=== PATIENT | female | born 1940 | race Caucasian/White ===

== ENCOUNTER 2016-08-17 13:22 | Emergency (ER) | payer MEDICARE ==
[~2016-08-17] VITALS: Ht 165.1 cm; Wt 82.6 kg
[~2016-08-17 13:22] MED LIST changes: -PRAV20TA4 PO
--- OUTSIDE RECORDS SUMMARY | 2016-08-17 13:27 | XMS REPORT ---
Author Author Leonardo Briseno Organization [employer] Address Unknown Phone Unavailable Care Team Providers Care Academic Guidance Specialist Name Role Phone Leonardo Briseno CP Unavailable Allergies No Known Allergies Problems Problem Type Condition Code Onset Dates Condition Status Problem Depressive disorder, not elsewhere classified 311 Active Problem Mixed hyperlipidemia 272.2 Active Problem Chronic kidney disease, Stage II (mild) 585.2 Active Problem Essential (primary) hypertension I10 Active Problem Hyperlipidemia, unspecified E78.5 Active Problem Unspecified diastolic (congestive) heart failure I50.30 Active Problem Congestive heart failure, unspecified 428.0 Active Problem Hypertension, benign 401.1 Active Problem Chronic obstructive pulmonary disease, unspecified J44.9 Active Problem COPD 496 Active Problem 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
--- OUTSIDE RECORDS SUMMARY | 2016-08-17 13:27 | XMS REPORT ---
Author Leonardo Simental Organization [employer] Address Unknown Phone Unavailable Care Team Providers Care Employment Director Name Role Phone Leonardo Briseno Unavailable Allergies No Known Allergies Problems Problem [...] Problem Asthma, unspecified, unspecified status 493.90 Active Assessment Essential (primary) hypertension I10 Active Problem Mixed hyperlipidemia 272.2 Active Problem Unspecified renal failure 586 Active Problem Hypertension, benign 401.1 Active Medications Medication Code System Code Instructions Start Date End Date Status Dosage Ventolin HFA [facility] [id number] 108 Inhalation every 4 hrs INHALE 2 PUFFS EVERY 4 HOURS NEEDED Ativan [facility] [address]-40 0.5 MG Orally every 8 hours May 28, 2015 one-half tablet as needed for anxiety Furosemide [facility] [address]-58 20 MG TAKE ONE TABLET BY MOUTH EVERY DAY Tessalon Perles [facility] [address]-42 100 MG Orally every 8 hours Jan 28, 2016 Feb 25, 2016 1 to 2 capsules as needed for cough/congestion Carvedilol [facility] [address]-31 6.25 MG Orally Twice a day 1 tablet with food Loratadine [facility] [address]-89 10 MG Orally PRN 1 tablet Amlodipine Besylate [facility] [address]-16 5 MG Orally Once a day 1 tablet Vitamin D [facility] [address]-88 1000 UNIT Orally Once a day 1 tablet Aspir-[address] [facility] [address]-17 81 MG Orally Once a day 1 tablet Ipratropium-Albuterol [facility] [address]-75 0.5-2.5 (3) MG/3ML Inhalation Four times a day [address] [facility] [address]-20 300 MG Orally Once a day 1/[address] [facility] [address]-33 0.25 MG/2ML Inhalation Twice a day [address] [facility] [address]-98 500 MG Orally prn 1 capsule as needed pravastatin [facility] [address]-38 20 mg oral at bedtime September 12, 2015 once daily Flonase [facility] [address]-60 50 MCG/ACT Nasally Once a day August 27, 2015 1 spray in each nostril Fluoxetine HCl [facility] [address]-31 10MG Orally Once a day August 22, 2013 take one capsule by mouth every day in the morning Procedures Procedure Coding System Code Date IH CMP CPT-4 91248 Feb 12, 2016 COMPLETE CBC W/AUTO DIFF WBC CPT-4 02482 Feb 12, 2016 Results No Known Results Summary Purpose [employer]Works Submission
--- OUTSIDE RECORDS SUMMARY | 2016-08-17 13:27 | XMS REPORT ---
Author Author Leonardo Briseno Organization [employer] Address Unknown Phone Unavailable Care Team Providers Care Miniature Set Builder Name Role Phone Leonardo Briseno CP Unavailable [...] Active Problem Hypertension, benign 401.1 Active Medications No Known Medications Results No Known Results Summary Purpose [employer] Submission
--- OUTSIDE RECORDS SUMMARY | 2016-08-17 13:27 | XMS REPORT | Continuity of Care Document ---
Author Author [facility] Organization [facility] Address Unknown Phone Unavailable Allergies Medications Problems Date Dx Coded Attending Type Code Diagnosis Diagnosed By 12/29/2011 Isrrael Hobbs MD Final [address] [employer] OBSTR NEC Procedures Results Encounters ACCT No. Visit Date/Time Discharge Status Pt. Type Provider Facility Loc./Unit Complaint [id number] 12/29/2011 12:20:00 2011 23:59:59 CLS Outpatient Isrrael Hobbs MD [facility]
--- OUTSIDE RECORDS SUMMARY | 2016-08-17 13:27 | XMS REPORT ---
Author Author Leonardo Briseno Organization [employer] Address Unknown Phone Unavailable Care Team Providers Care Kitchen Porter Name Role Phone Leonardo Briseno CP Unavailable [...]
--- OUTSIDE RECORDS SUMMARY | 2016-08-17 13:27 | XMS REPORT ---
Author Leonardo Simental Organization [employer] Address Unknown Phone Unavailable Care Team Providers Care Manual Plate Filler Name Role Phone Leonardo Briseno CP Unavailable Allergies, Adverse Reactions, Alerts Substance Reaction Event Type Serevent Diskus anaphylaxis Drug Allergy Lisinopril electrolyte imbalance Drug Allergy Hydrochlorothiazide electrolyte imbalance Drug Allergy Flovent HFA chest tightening Drug Allergy Augmentin nausea and vomiting Drug Allergy Problems Problem Type Condition Code Onset Dates [...] unspecified J44.9 Active Problem COPD 496 Active Assessment Acute bronchitis due to other specified organisms J20.8 Active Problem 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 Problem Asthma, unspecified, unspecified status 493.90 Active Assessment Chronic obstructive pulmonary disease, unspecified J44.9 Active Problem Mixed hyperlipidemia 272.2 Active Problem Unspecified renal failure 586 Active Problem Hypertension, benign 401.1 Active Medications Medication Code System Code Instructions Start Date End Date Status Dosage Furosemide [facility] [address]-52 20 MG TAKE ONE TABLET BY MOUTH EVERY DAY Vitamin D [facility] [address]-14 1000 UNIT Orally Once a day 1 tablet Fluoxetine HCl [facility] [address]-61 10MG Orally Once a day August 22, 2013 take one capsule by mouth every day in the morning Allopurinol [facility] [address]-91 300 MG Orally Once a day 1/2 tablet Tessalon Perles [facility] [address]-60 100 MG Orally every 8 hours Jan 28, 2016 Feb 25, 2016 1 to 2 capsules as needed for cough/congestion Ativan [facility] [address]-42 0.5 MG Orally every 8 hours May 28, 2015 one-half tablet as needed for anxiety Loratadine [facility] [address]-80 10 MG Orally PRN 1 tablet PredniSONE [facility] [address]-63 10 MG Orally 4 tabs daily X3 days then 2 tabs daily X3 days then 1 tab daily X3 days then stop. Jan 28, 2016 Feb 06, 2016 1 tablet with food or milk Carvedilol [facility] [address]-27 6.25 MG Orally Twice a day 1 tablet with food Azithromycin [facility] [address]-91 250 MG Orally as directed. Jan 28, 2016 Feb 02, 2016 2 tablets on the first day, then 1 tablet daily for 4 days Flonase [facility] [address]-48 50 MCG/ACT Nasally Once a day August 27, 2015 1 spray in each nostril pravastatin [facility] [address]-20 20 mg oral at bedtime September 12, 2015 once daily Aspir-81 [facility] [address]-57 81 MG Orally Once a day 1 tablet Acetaminophen [facility] [address]-20 500 MG Orally prn 1 capsule as needed Ventolin HFA [facility] 65573055867 108 Inhalation every 4 hrs INHALE 2 PUFFS EVERY 4 HOURS NEEDED Amlodipine Besylate [facility] [address]-25 5 MG Orally Once a day 1 tablet Budesonide [facility] [address]-42 0.25 MG/2ML Inhalation Twice a day 2 ml Ipratropium-Albuterol [facility] [address]-35 0.5-2.5 (3) MG/3ML Inhalation Four times a day 3 ml Procedures Procedure Coding System Code Date OFFICE VISIT, EST-LOW COMPLEXITY (15 MIN.) CPT-4 70036 Jan 28, 2016 [facility] visit Established Patient CPT-4 G0467 Jan 28, 2016 Vital Signs Date/Time: Jan 28, 2016 Temperature 97.9 F Height 66 in Weight 175.8 lbs Blood Pressure Diastolic 84 mm Hg Blood Pressure Systolic 140 mm Hg Cardiac Monitoring Heart Rate 94 /min BMI 28.37 Index Oximetry 94 % Results No Known Results Summary Purpose eClinicalWorks Submission
--- OUTSIDE RECORDS SUMMARY | 2016-08-17 13:28 | XMS REPORT ---
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 Problem Asthma, unspecified, unspecified status 493.90 Active Assessment Chronic obstructive pulmonary disease, unspecified J44.9 Active Problem Mixed hyperlipidemia 272.2 Active Problem Unspecified renal failure 586 Active Problem Hypertension, benign 401.1 Active Medications Medication Code System Code Instructions Start Date End Date Status Dosage Fluoxetine HCl [facility] [address]-18 10MG Orally Once a day August 22, 2013 take one capsule by mouth every day in the morning Ventolin HFA [facility] [id number] 108 Inhalation every 4 hrs INHALE 2 PUFFS EVERY 4 HOURS NEEDED pravastatin [facility] [address]-30 20 mg oral at bedtime September 12, 2015 once daily Acetaminophen [facility] [address]-91 500 MG Orally prn 1 capsule as needed Loratadine [facility] [address]-11 10 MG Orally PRN 1 tablet Ativan [facility] [address]-57 0.5 MG Orally every 8 hours May 28, 2015 one-half tablet as needed for anxiety Carvedilol [facility] [address]-67 6.25 MG Orally Twice a day 1 tablet with food PredniSONE [facility] [address]-87 10 MG Orally 4 tabs daily X3 days then 2 tabs daily X3 days then 1 tab daily X3 days then stop. Jan 28, 2016 Feb 06, 2016 1 tablet with food or milk Vitamin D [facility] [address]-47 1000 UNIT Orally Once a day 1 tablet Aspir-81 [facility] [address]-82 81 MG Orally Once a day 1 tablet Tessalon Perles [facility] [address]-64 100 MG Orally every 8 hours Jan 28, 2016 Feb 25, 2016 1 to 2 capsules as needed for cough/congestion Budesonide [facility] [address]-38 0.25 MG/2ML Inhalation Twice a day 2 ml Amlodipine Besylate [facility] [address]-53 5 MG Orally Once a day 1 tablet Furosemide [facility] [address]-13 20 MG TAKE ONE TABLET BY MOUTH EVERY DAY Allopurinol [facility] [address]-60 300 MG Orally Once a day 1/2 tablet Ipratropium-Albuterol [facility] [address]-98 0.5-2.5 (3) MG/3ML Inhalation Four times a day 3 ml Flonase [facility] [address]-38 50 MCG/ACT Nasally Once a day August 27, 2015 1 spray in each nostril Procedures Procedure Coding System Code Date OFFICE VISIT, EST-LOW COMPLEXITY (15 MIN.) CPT-4 43993 Feb 03, 2016 [facility] visit Established Patient CPT-4 G0467 Feb 03, 2016 Vital Signs Date/Time: Feb 03, 2016 Temperature 98.4 F Height 66 in Weight 175.12 lbs Blood Pressure Diastolic 88 mm Hg Blood Pressure Systolic 148 mm Hg Cardiac Monitoring Heart Rate 89 /min BMI 28.26 Index Oximetry 91 % Respiratory Rate 24 /min Results No Known Results Summary Purpose eClinicalWorks Submission
--- OUTSIDE RECORDS SUMMARY | 2016-08-17 13:28 | XMS REPORT ---
Author Leonardo Simental Organization [employer] Address Unknown Phone Unavailable Care Team Providers Care County Supervisor Name Role Phone Leonardo Briseno CP Unavailable Allergies, Adverse Reactions, Alerts Substance Reaction Event Type Serevent Diskus anaphylaxis Drug Allergy Lisinopril electrolyte imbalance Drug Allergy Hydrochlorothiazide electrolyte imbalance Drug Allergy Flovent HFA chest tightening Drug Allergy Augmentin nausea and vomiting Drug Allergy Problems Problem Type Condition Code Onset Dates Condition Status Problem Chronic kidney disease, Stage II (mild) 585.2 Active Problem Hypertension, benign 401.1 Active Problem Mixed hyperlipidemia 272.2 Active Problem Unspecified diastolic (congestive) heart failure I50.30 Active Problem Essential (primary) hypertension I10 Active Problem Elevated white blood cell count, unspecified D72.829 Active Problem COPD 496 Active Problem Congestive heart failure, unspecified 428.0 Active Problem Hyperlipidemia, unspecified E78.5 Active Problem Chronic obstructive pulmonary disease, unspecified J44.9 Active Assessment Chronic obstructive pulmonary disease, unspecified J44.9 Active Assessment Acute bronchitis due to other specified organisms J20.8 Active Assessment Elevated white blood cell count, unspecified D72.829 Active Problem Asthma, unspecified, unspecified status 493.90 Active Problem Mixed hyperlipidemia 272.2 Active Problem Unspecified renal failure 586 Active Problem Hypertension, benign 401.1 Active Problem 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 Problem Depressive disorder, not elsewhere classified 311 Active Medications Medication Code System Code Instructions Start Date End Date Status Dosage Furosemide [facility] [address]-60 20 MG TAKE ONE TABLET BY MOUTH EVERY DAY pravastatin [facility] [address]-95 20 mg oral at bedtime September 12, 2015 once daily Carvedilol [facility] [address]-64 6.25 MG Orally Twice a day 1 tablet with food Klor-Con M20 [facility] [address]-25 20 MEQ Orally 1 time daily 1 tablet Amlodipine Besylate [facility] [address]-48 5 MG Orally Once a day 1 tablet Vitamin D [facility] [address]-76 1000 UNIT Orally Once a day 1 tablet Ativan [facility] [address]-57 0.5 MG Orally every 8 hours May 28, 2015 one-half tablet as needed for anxiety Ventolin HFA [facility] 21301827150 108 Inhalation every 4 hrs INHALE 2 PUFFS EVERY 4 HOURS NEEDED Allopurinol [facility] [address]-30 300 MG Orally Once a day 1/2 tablet Budesonide [facility] [address]-19 0.25 MG/2ML Inhalation Twice a day 2 ml Ipratropium-Albuterol [facility] [address]-62 0.5-2.5 (3) MG/3ML Inhalation Four times a day 3 ml Fluoxetine HCl [facility] [address]-65 10MG Orally Once a day August 22, 2013 take one capsule by mouth every day in the morning Aspir-81 [facility] [address]-16 81 MG Orally Once a day 1 tablet Flonase [facility] [address]-61 50 MCG/ACT Nasally Once a day August 27, 2015 1 spray in each nostril Loratadine [facility] [address]-71 10 MG Orally PRN 1 tablet Zithromax [facility] [address]-20 250 MG Orally a week. 3 tablets Acetaminophen [facility] [address]-40 500 MG Orally prn 1 capsule as needed Procedures Procedure Coding System Code Date OFFICE VISIT, EST-LOW COMPLEXITY (15 MIN.) CPT-4 47154 Mar 03, 2016 [facility] visit Established Patient CPT-4 G0467 Mar 03, 2016 Vital Signs Date/Time: Mar 03, 2016 Temperature 97.8 F Height 66 in Weight 177. lbs Blood Pressure Diastolic 80 mm Hg Blood Pressure Systolic 146 mm Hg Cardiac Monitoring Heart Rate 89 /min BMI 28.57 Index Respiratory Rate 20 /min Results No Known Results Summary Purpose eClinicalWorks Submission
--- OUTSIDE RECORDS SUMMARY | 2016-08-17 13:28 | XMS REPORT ---
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
--- OUTSIDE RECORDS SUMMARY | 2016-08-17 13:28 | XMS REPORT ---
Author Author Leonardo Briseno Organization [employer] Address Unknown Phone Unavailable Care Team Providers Care Burial Vault Deliverer And Installer Name Role Phone Leonardo Briseno CP Unavailable [...] Date End Date Status Dosage Ventolin HFA [facility] [id number] 108 Inhalation every 4 hrs INHALE 2 PUFFS EVERY 4 HOURS NEEDED Results No Known Results Summary Purpose eClinicalWorks Submission
--- OUTSIDE RECORDS SUMMARY | 2016-08-17 13:29 | XMS REPORT | Continuity of Care Document ---
Author Author [facility] Organization [facility] Address Unknown Phone Unavailable Support Name Relationship Address Phone LENO ROMI Kwon DO Caregiver [address] [place] [address] Unavailable LENOROMI DO Caregiver [address] [place] [address] Unavailable LENO ROMI Kwon DO Caregiver [address] [place] [address] Unavailable TAHIR ROBERTO Next Of Kin Unknown [phone] Insurance Providers Guarantor Beth Ash Address [address] [address] Email DENIED/NO TO PT [facility] Payer Medicare Policy Number [id number] Subscriber's Name Beth Ash Avril Relationship 18 Self Effective Date 06 Advance Directives Directive Response Recorded Date/Time Dr Ordered Resuscitation Status Full Code 02/03/16 11:14am Resuscitation Documents on File No 02/03/16 10:23am DPOA for Healthcare Only No 02/03/16 2:30pm Living Will No 02/03/16 10:23am Advance Directive Consult Information Given 02/05/16 11:20am Problems Active Problems Medical Problem Onset Date Status Acute respiratory failure with hypoxia Unknown Acute Anxiety and depression Unknown Chronic Atelectasis, left Unknown Acute COPD (chronic obstructive pulmonary disease) Unknown Acute COPD exacerbation Unknown Acute Cataract Unknown Frequent UTI Unknown Chronic Gout Unknown Chronic Hypercholesterolemia Unknown Chronic Hypertension Unknown Chronic Hypokalemia ~01/01/2015 Resolved Hyponatremia Unknown Chronic Insomnia Unknown Acute OA (osteoarthritis) Unknown Chronic Peripheral edema Unknown Chronic Seasonal allergies Unknown Chronic Medications Current Home Medications Medication Dose Units Route Directions Days Qty Instructions Start Date Acetaminophen (Tylenol) 325 Mg Tablet 650 Mg Oral Every 6 Hours as needed for Discomfort 14 Days 112 Tablet take no other tylenol products while on this. get the 325mg tablets. 02/06/16 Albuterol Sulfate (Ventolin Hfa 90 Mcg/Actuation) 18 Gm Hfa.aer.ad 2 Puff Oral Inhalation Every 4 Hours as needed for Shortness Of Air/Wheezing 02/03/16 Allopurinol 300 Mg Tablet 0.5 Tab Oral Daily 12/31/14 Amlodipine Besylate (Norvasc) 5 Mg Tablet 5 Mg Oral Daily Aspirin (Aspir 81) 81 Mg Tablet.dr 81 Mg Oral Bedtime 04/17/11 Benzonatate 100 Mg Capsule 100 Mg Oral Three Times A Day as needed for Cough/Congestion 14 Days 42 Capsule 02/06/16 Budesonide (Pulmicort) 0.5 Mg/2 Ml Inha 0.5 Mg Aerosol Tx. Twice A Day 30 Days 1 Inhaler 02/06/16 Carvedilol 6.25 Mg Tablet 1 Tab Oral Twice Daily With Meals BEST WITH FOOD. 12/31/14 Cholecalciferol (Vitamin D) 1,000 Unit Capsule 1,000 Unit Oral Daily 08/27/10 Docusate Sodium (Colace) 100 Mg Capsule 100 Mg Oral Twice A Day as needed for Constipation 30 Days 60 Capsule hold for loose stools. 02/06/16 Fluoxetine Hcl (Prozac) 10 Mg Capsule 20 Mg Oral Daily 30 Days 03/17 Fluticasone Propionate (Fluticasone Prop 50 Mcg/Actuation Nasal [place]) 120 [place]/16 G [place] 1 [place] Each Nostril Daily 30 Days 1 Milliliter 02/05 Furosemide 20 Mg Tablet 20 Mg Oral Daily 04/17/11 Ipratropium/Albuterol Sulfate (Iprat-Albut 0.5-3(2.5) Mg/3 Ml) 3 Ml Ampul.neb 1 Unit Aerosol Tx. Every 4 Hours Prn as needed for Shortness Of Air/Wheezing 0 Vial unless direction to use more often by your lung doctor. 02/06/16 Levofloxacin (Levaquin) 750 Mg Tablet 750 Mg Oral Before Breakfast 1 Days 1 Tablet 02/06/16 Loratadine 10 Mg Tablet 10 Mg Oral As Needed Take 1 tablet, by mouth , one time a day (before breakfast). 12/31/14 Lorazepam (Ativan) 0.5 Mg Tablet 0.5 Mg Oral Q8h @ 0100/0900/1700 as needed for Anxiety 30 Days 90 Tablet discontinue xanax. 02/06/16 Potassium Chloride (Klor-Con M20) 20 Meq Tablet 20 Meq Oral Give With Breakfast 30 Days 30 Tablet 02/06/16 Prednisone 10 Mg Tablet 10 Mg Oral Give With Breakfast 9 Days 19 Tablet 4 tabs daily X2 days then 2 tabs daily X4 days then 1 tab daily X3 days then stop. with food. 02/06/16 Roflumilast (Daliresp) 500 Mcg Tablet 500 Mcg Oral Daily 30 Days 30 Tablet 02/06/16 Past Home Medications Medication Directions Ordered Status Acetaminophen (Tylenol) 500 Mg Tablet, As Needed 11/28/11 Discontinued Albuterol 17 Gm Aerosol, 2 Puff Inhalation As Needed 08/27/10 Discontinued Baclofen 10 Mg Tablet, 5 Mg Oral Tid Prn 11/28/11 Discontinued Budesonide 0.25 Mg/2 Ml Ampul.neb, 1 Vial Aerosol Tx. Twice A Day 02/03/16 Discontinued Carvedilol (Coreg) 6.25 Mg Tablet, 6.25 Mg Oral Daily 04/17/11 Discontinued Fluoxetine Hcl (Prozac) 10 Mg Capsule, 10 Mg Oral Daily 12/31/14 Discontinued Hydrochlorothiazide 12.5 Mg Tablet, 12.5 Mg Oral Daily 08/27/10 Discontinued Hydroclorothiazide , 09/30/08 Discontinued Ibuprofen (Motrin) 200 Mg Tablet, 200 Mg Oral As Needed 08/27/10 Discontinued Ipratropium/Albuterol Sulfate (Iprat-Albut 0.5-3(2.5) Mg/3 Ml) 3 Ml Ampul.neb, 1 Unit Aerosol Tx. Every Two Hours as needed for Shortness Of Air/Wheezing 03/17 Discontinued Ipratropium/Albuterol Sulfate (Iprat-Albut 0.5-3(2.5) Mg/3 Ml) 3 Ml Ampul.neb, 1 Unit Aerosol Tx. Every 6 Hours 12/31/14 Discontinued Lisinopril 20 Mg Tablet, 20 Mg Oral Twice A Day 08/27/10 Discontinued Lisinopril , 09/30/08 Discontinued [place]-3 Fatty Acids (Fish Oil) 500 Mg Capsule, 1 Cap Oral Daily 08/27/10 Discontinued Social History Social History Problem Response Recorded Date/Time Onset Date Status Reason for Hospitalization acute COPD exacerbation. 02/06/2016 1:13pm Not Applicable Not Applicable Hx Alcohol Use Y OCCASSIONAL WINE 12/31/2014 4:01am Not Applicable Not Applicable Has the pt used tobacco in the last 12 months No 02/03/2016 10:27am Not Applicable Not Applicable Tobacco Usage none 12/31/2014 8:18am Not Applicable Not Applicable Query Response Start Date Stop Date Smoking Status Former smoker Hospital Discharge Instructions Instructions: Care Instructions: I was in the hospital because (patient own words): COPD, respiratory Discharge Diet: cardiac diet Discharge Activity: no changes from pre-hospitalization. Follow Up Appointments: -appointment with Dr. Burr ON 02/19 AT 2:45 at [facility]. have patient do a CBC and CMP wednesday of next week (02/10/16) AT 2PM and send to Dr. Burr. ICD 10 code for this is E87.6, D72.829. APPOINTMENT WITH DR BROOKS ON 02/09 AT 11:30. -all appointments with other providers stay the same. Pending Lab / Results: Follow up w/ your PCP Patient Instructions: -if you can't make your appointments or afford your medications let us know right away. -use your oxygen as instructed. -you may use the albuterol inhaler or the duonebs every 4 hours but not both together. call your lung doctor right when you get home to see if he's ok with you using it more if needed. Wound/Incision Care: -keep the site of previous bleeding from you lovenox injection covered with gauze to prevent bleeding. if this doesn't go away in 3 days let us know then. if it worsens and/or new issues occur with it let us know right away. Durable Medical Equipment: -use one liter of oxygen at rest and 2 liters of oxygen with any exertion. see script given today. Pain Management/Treatment: if you have any pain anywhere let a physician know right away. Expected Signs/Symptoms: -shortness of breath should improve -dizziness should resolve -cough should improve Notify Physician If: -return to care immediately if shortness of breath worsens, chest pain occurs, dizziness doesn't resolve in 3 days, dizziness worsens, fatigue worsens. During Business Hours:: Please call the physician's office at [phone] for any issues or questions. After Business Hours:: Please call [phone] and have the terminal operator page the physician or the covering provider if you have questions or concerns. Condition at time of discharge: Good Plan of Care Discharge Date 02/06/16 3:20pm Disposition 01 DISCHARGED HOME, SELF-CARE Instructions/Education Provided DI for Chronic Obstructive Pulmonary Disease DI for Shortness of Breath Prescriptions See Medication Section Additional Instructions/Education -don't discharge until Dr. Burr has seen today and given the verbal order to do so. you may start working on everything else now. -please discontinue all lines, IV's and telemetry the patient didn't come in on before discharge. Care Plan and Goals See Discharge Instructions Section Functional Status Query Response Date Recorded Mobility Status Ambulatory February 06, 2016 1:13pm Assistive Devices Cane February 06, 2016 1:13pm Activity Limitations Shortness of breath February 06, 2016 1:13pm Feeding Ability Independent February 06, 2016 1:13pm Toileting Ability Independent February 06, 2016 1:13pm Grooming Ability Independent February 06, 2016 1:13pm Dressing Ability Independent February 06, 2016 1:13pm Driving Ability Assist February 06, 2016 1:13pm Housework Ability Assist February 06, 2016 1:13pm Meal Preparation Ability Assist February 06, 2016 1:13pm Stair Climbing Ability Assist February 06, 2016 1:13pm Ability to complete ADL's impeded by Impaired Mobility No change February 06, 2016 1:13pm Cognitive/Perceptual Impairments Impaired vision February 06, 2016 1:13pm Visual Assistive Devices Glasses With patient February 06, 2016 10:16am Preferred Method of Learning Reading February 06, 2016 10:16am Allergies, Adverse Reactions, Alerts Allergen Type Severity Reaction Status Last Updated amoxicillin trihydrate Allergy Unknown Active 11/28/11 Lisinopril Allergy Unknown Active 11/28/11 Hydrochlorothiazide Allergy Unknown Active 11/28/11 potassium clavulanate Allergy Unknown Active 11/28/11 Salmeterol Allergy Severe RESPIRATORY DISTRESS Active 12/31/14 Immunizations Immunization Event Date Type Not Given Reason Dose Number Lot Number [place] VIS Given Influenza, high dose seasonal 02/03/16 Administered 1 [id number] [employer] P[employer] 12/07/14 Query Response on File Recorded Date/Time Hx Influenza Vaccination Y fall 201402/03/16 10:27am Hx Pneumococcal Vaccination Y UNKNOWN DATE 02/03/16 10:27am Hx Influenza Vaccination Y fall 201402/03/16 10:27am Influenza Vaccine Hx Jan 2015 02/04/16 12:02pm Vital Signs Acute Vital Signs Vital Response Date/Time Temperature (Fahrenheit) 95.7 deg F (96.8 - 99.1) 02/06/2016 7:23am Temperature (Calculated Celsius) 35.10232 degrees C (36.0 - 37.3) 02/06/2016 7:23am Pulse Rate (adult) 87 bpm (60 - 100) 02/06/2016 10:15am Respiratory Rate 16 breaths/min (10 - 20) 02/06/2016 7:23am O2 Sat by Pulse Oximetry 94 % (90 - 100) 02/06/2016 11:00am Oxygen Delivery Method Nasal Cannula 02/06/2016 11:00am Oxygen Delivery Method Nasal Cannula 02/06/2016 7:23am Oxygen Flow Rate 1.00 L/min 02/06/2016 11:00am Blood Pressure 171/87 mm Hg 02/06/2016 7:23am Blood Pressure Source Automatic Cuff 02/06/2016 7:23am Height (Feet) 5 feet 02/06/2016 1:23pm Height (Inches) 6.00 inches 02/06/2016 1:23pm Weight (Kilograms) 78.600 kg 02/06/2016 8:00am Body Mass Index (BMI) 28.1 02/03/2016 10:20am Results Laboratory Results Test Name Result Units Flags Reference Collection Date/Time Result Date/ Time Comments White Blood Count 8.4 T/MM3 4.5-11.0 02/06/2016 4:26am 02/06/2016 5: 26am Red Blood Count 4.05 M/MM3 4.00-5.20 02/06/2016 4:26am 02/06/2016 5: 26am Hemoglobin 13.6 GM/DL 12-16 02/06/2016 4:26am 02/06/2016 5:26am Hematocrit 40.3 % 36-46 02/06/2016 4:26am 02/06/2016 5:26am Mean Corpuscular Volume 99.5 UM3 80-100 02/06/2016 4:26am 02/06/2016 5: 26am Mean Corpuscular Hemoglobin 33.6 UUG 26-34 02/06/2016 4:26am 2015 5:26am Mean Corpuscular Hemoglobin Concent 33.7 GM/DL 31-37 02/06/2016 4:26am 02/06/2016 5:26am RDW Standard Deviation 44.2 FL 36.9-50.2 02/06/2016 4:26am 02/06/2016 5 :26am Platelet Count 223 T/MM3 130-400 02/06/2016 4:26am 02/06/2016 5:26am Mean Platelet Volume 10.4 UM3 9.4-12.4 02/06/2016 4:26am 02/06/2016 5: 26am Neutrophils (%) (Auto) 70.3 % H 33-66 02/03/2016 11:36am 02/03/2016 11: 50am Lymphocytes (%) (Auto) 18.7 % L 23-45 02/03/2016 11:36am 02/03/2016 11: 50am Monocytes (%) (Auto) 7.9 % 0-9.0 02/03/2016 11:36am 02/03/2016 11:50am Eosinophils (%) (Auto) 1.8 % 0-4 02/03/2016 11:36am 02/03/2016 11:50am Basophils (%) (Auto) 0.4 % 0-2 02/03/2016 11:36am 02/03/2016 11:50am Immature Granulocyte % (Auto) 0.9 % H 0.0-0.5 02/03/2016 11:36am 2015 11:50am Absolute Neutrophils (auto) 9.1 T/MM3 H 1.8-7.7 02/03/2016 11:36am 02/02 11:50am Absolute Lymphocytes (auto) 2.4 T/MM3 1-4.8 02/03/2016 11:36am 2015 11:50am Absolute Monocytes (auto) 1.0 T/MM3 H 0-0.8 02/03/2016 11:36am 2015 11:50am Absolute Eosinophils (auto) 0.2 T/MM3 0-0.5 02/03/2016 11:36am 2015 11:50am Absolute Basophils (auto) 0.1 T/MM3 0-0.2 02/03/2016 11:36am 2015 11:50am Absolute Immature Granulocyte (auto 0.12 T/MM3 H 0.00-0.03 02/03/2016 11: 36am 02/03/2016 11:50am Neutrophils % (Manual) 90.0 % H 33-66 02/06/2016 4:am 02/06/2016 6: 16am Band Neutrophils % 1.0 % 0-6 02/06/2016 4:am 02/06/2016 6:16am Lymphocytes % (Manual) 8.0 % L 23-45 02/06/2016 4:am 02/06/2016 6: 16am Monocytes % (Manual) 1.0 % 0-9.0 02/06/2016 4:am 02/06/2016 6:16am Band Neutrophils # 0.1 T/MM3 02/06/2016 4:am 02/06/2016 6:16am Absolute Neutrophils (Manual) 7.6 T/MM3 1.8-7.7 02/06/2016 4:am 02/05 6:16am Lymphocytes # (Manual) 0.7 T/MM3 L 1-4.8 02/06/2016 4:am 02/06/2016 6: 16am Monocytes # (Manual) 0.1 T/MM3 0-0.8 02/06/2016 4:am 02/06/2016 6: 16am Red Cell Morphology Comment NORMAL 02/06/2016 4:02/06/2016 6: 16am Prothromb Time International Ratio 0.82 L 0.99-1.21 02/03/2016 11:36am 02/03/2016 11:58am THERAPUTIC RANGE=2.00-3.00 FOR ANTI-THROMBOSIS THERAPUTIC RANGE=2.50-3.50 FOR IMPLANTED VALVE Activated Partial Thromboplast Time 24.5 SEC 24-36 02/03/2016 11:36am 02/03/2016 11:58am D-Dimer 153 NG/ML 0-230 02/03/2016 10:17pm 02/03/2016 10:35pm <230 NG/ ML D-DU=PRESUMPTIVE NEGATIVE FOR PE OR DVT >230 NG/ML D-DU=ADDITIONAL EVAL FOR PE OR DVT RECOMMENDED Icterus Index < 2 0-7 02/06/2016 4:am 02/06/2016 5:47am Chemistry Specimen Hemolysis < 15 0-25 02/06/2016 4:am 02/06/2016 5 :47am 0-25: Specimen Exhibited No Hemolysis. Turbidity < 20 0-20 02/06/2016 4:02/06/2016 5:47am Sodium Level 136 MEQ/L 134-144 02/06/2016 4:02/06/2016 5:47am Potassium Level 3.5 MEQ/L L 3.6-5 02/06/2016 4:02/06/2016 5:47am Chloride Level 99 MEQ/L 98-107 02/06/2016 4:02/06/2016 5:47am Carbon Dioxide Level 27 MEQ/L 22-30 02/06/2016 4:02/06/2016 5: 47am Anion Gap 10 MEQ/L 5-15 02/06/2016 4:02/06/2016 5:47am Blood Urea Nitrogen 30.0 MG/DL H 7-17 02/06/2016 4:02/06/2016 5: 47am Creatinine 0.9 MG/DL 0.7-1.2 02/06/2016 4:02/06/2016 5:47am BUN/Creatinine Ratio 33 RATIO H 6-02/06/2016 4:02/06/2016 5: 47am Glomerular Filtration Rate Calc 61 02/06/2016 4:02/06/2016 5: 47am Glucose Level 147 MG/DL H 65-110 02/06/2016 4:02/06/2016 5:47am Calculated Osmolality 271 MOSM/KG 261-280 02/06/2016 4:02/06/2016 5:47am Calcium Level 9.2 MG/DL 8.4-10.2 02/06/2016 4:02/06/2016 5:47am Phosphorus Level 4.0 MG/DL 2.5-4.5 02/03/2016 11:36am 02/03/2016 11: 59am Total Bilirubin 0.50 MG/DL 0.20-1.30 02/06/2016 4:02/06/2016 5: 47am Alkaline Phosphatase 71 U/L 38-126 02/06/2016 4:02/06/2016 5:47am Total Protein 6.2 G/DL L 6.3-8.2 02/06/2016 4:26am 02/06/2016 5:47am Albumin 3.7 G/DL 3.5-5.0 02/06/2016 4:2602/06/2016 5:47am Globulin 2.5 G/DL 2.4-3.6 02/06/2016 4:2602/06/2016 5:47am Albumin/Globulin Ratio 1.5 RATIO 1.1-2.2 02/06/2016 4:02/06/2016 5 :47am Aspartate Amino Transf (AST/SGOT) 39 U/L H 14-36 02/06/2016 4:02/05 5:47am Alanine Aminotransferase (ALT/SGPT) 41 U/L 9-52 02/06/2016 4:02/05 5:47am Total Creatine Kinase 21 U/L L 30-135 02/03/2016 11:36am 02/03/2016 11: 59am Troponin I < 0.012 ng/ml 0-0.12 02/03/2016 11:36am 02/03/2016 12:11pm Troponin values with a difference of 55% increase from orginal troponin value represent a true biological DELTA value. (%increase Calc=Orginal Troponin value, divided by subsequent Troponin value, multiplied by 100) C-Reactive Protein < 5.0 MG/L 0-9 02/03/2016 11:36am 02/03/2016 12: 23pm LY-Bru-N-Type Natriuretic Peptide 312 PG/ML H 0-175 02/03/2016 11:36am 02/03/2016 12:29pm Rule in cut points: <50 years old=450; 50-75 years old=900; >75 years old=1800; When utilizing ProBNP rule-in cut points, adjustment for impaired renal function is typically not required. Magnesium Level 1.9 MG/DL 1.6-2.3 02/03/2016 11:36am 02/03/2016 12: 23pm Plasma Lactate 2.1 MMOL/L 0.6-2.2 02/03/2016 11:3602/03/2016 12: 00pm Procalcitonin < 0.05 NG/ML 02/03/2016 11:36am 02/03/2016 12:18pm PCT </=0.5 ng/mL - sepsis not likely; PCT >0.5 and </=2 ng/mL - sepsis possible; PCT >2 ng/mL - sepsis likely; PCT >/=10 ng/mL - systemic inflammatory response - sepsis or septic shock highly indicated. Thyroid Stimulating Hormone (TSH) 0.71 MIU/L 0.47-4.68 02/04/2016 4: 29am 02/04/2016 5:32am Adenovirus (PCR) NEGATIVE NEGATIVE 02/05/2016 10:45am 02/05/2016 2: 31pm Coronavirus Type 229E (PCR) NEGATIVE NEGATIVE 02/05/2016 10:45am 09/2015 2:31pm Coronavirus Type HKU1 (PCR) NEGATIVE NEGATIVE 02/05/2016 10:45am 09/2015 2:31pm Coronavirus Type NL63 (PCR) NEGATIVE NEGATIVE 02/05/2016 10:45am 09/2015 2:31pm Coronavirus Type OC43 (PCR) NEGATIVE NEGATIVE 02/05/2016 10:45am 09/2015 2:31pm Human Metapneumovirus (PCR) NEGATIVE NEGATIVE 02/05/2016 10:45am 09/2015 2:31pm Enterovirus/Rhinovirus (PCR) NEGATIVE NEGATIVE 02/05/2016 10:45am 09/2015 2:31pm Influenza Virus Type A (PCR) NEGATIVE NEGATIVE 02/05/2016 10:45am 09/2015 2:31pm Influenza Virus Type B (PCR) NEGATIVE NEGATIVE 02/05/2016 10:45am 09/2015 2:31pm Parainfluenza Type 1 (PCR) NEGATIVE NEGATIVE 02/05/2016 10:45am 02/04 2:31pm Parainfluenza Type 2 (PCR) NEGATIVE NEGATIVE 02/05/2016 10:45am 02/04 2:31pm Parainfluenza Type 3 (PCR) NEGATIVE NEGATIVE 02/05/2016 10:45am 02/04 2:31pm Parainfluenza Type 4 (PCR) NEGATIVE NEGATIVE 02/05/2016 10:45am 02/04 2:31pm Respiratory Syncytial Virus (PCR) NEGATIVE NEGATIVE 02/05/2016 10: 45am 02/05/2016 2:31pm Bordetella parapertussis DNA (PCR) NEGATIVE NEGATIVE 02/05/2016 10: 45am 02/05/2016 2:31pm Chlamydia pneumoniae DNA (PCR) NEGATIVE NEGATIVE 02/05/2016 10:45am 02/05/2016 2:31pm Mycoplasma pneumoniae (PCR) NEGATIVE NEGATIVE 02/05/2016 10:45am 09/2015 2:31pm Urine Collection Type [place]-MIDSTREAM 02/03/2016 11:32am 02/02 11:50am Urine Color YELLOW YELLOW 02/03/2016 11:32am 02/03/2016 11:50am Urine Turbidity CLEAR CLEAR 02/03/2016 11:32am 02/03/2016 11:50am Urine Specific [place] 1.010 L 1.015-1.025 02/03/2016 11:32am 2015 11:50am Urine pH 7.5 5.0-8.0 02/03/2016 11:32am 02/03/2016 11:50am Urine Leukocyte Esterase 1+ A NEGATIVE 02/03/2016 11:32am 02/03/2016 11:50am Urine Nitrite NEGATIVE NEGATIVE 02/03/2016 11:32am 02/03/2016 11: 50am Urine Protein NEGATIVE NEGATIVE 02/03/2016 11:32am 02/03/2016 11: 50am Urine Glucose (UA) NEGATIVE NEGATIVE 02/03/2016 11:32am 02/03/2016 11 :50am Urine Ketones NEGATIVE NEGATIVE 02/03/2016 11:32am 02/03/2016 11: 50am Urine Urobilinogen 0.2 EU/DL NORMAL 02/03/2016 11:32am 02/03/2016 11: 50am Urine Bilirubin NEGATIVE NEGATIVE 02/03/2016 11:32am 02/03/2016 11: 50am Urine Blood TRACE-INTACT A NEGATIVE 02/03/2016 11:32am 02/03/2016 11: 50am Urine WBC NONE SEEN /HPF 0-5 02/03/2016 11:32am 02/03/2016 12:07pm Urine RBC 0-1 /HPF 0-3 02/03/2016 11:32am 02/03/2016 12:07pm Urine Squamous Epithelial Cells 0-5 02/03/2016 11:32am 02/03/2016 12:07pm Urine Bacteria NONE SEEN NEGATIVE 02/03/2016 11:32am 02/03/2016 12: 07pm Urine Culture Indicated CULT NOT INDICATED 02/03/2016 11:32am 02/02 12:07pm Glucometer 146 mg/dL H 65-110 02/06/2016 5:33am 02/06/2016 9:37am Microbiology Results Procedure Source Organism/Result Collection Date/Time Result Date/Time Result Status Blood Culture Peripheral/Iv Start NO GROWTH AFTER 72 HOURS 02/03/2016 11: 35am 02/06/2016 11:46am Preliminary Name: BETH ASH Unit #: [id number] : 1940 Sex: F Admit Date: 02/03/16 Loc / Svc: MED Discharge Date: DIAGNOSTIC IMAGING REPORT Report #: [id number] [facility] BRYAN [place] Indication: ITS.REASON: shortness of breath PROCEDURE: CT CHEST W/O CONTRAST: Encounter: Initial Comparison: Chest CT dated August 06, 2015 Technique: Axial CT images were performed through the chest without intravenous contrast. Coronal and sagittal two-dimensional reformats. Findings: Upper lobes are stable in appearance with some scarring in the right apex and centrilobular emphysema. No pleural effusion or pneumothorax. New atelectatic medial segment left lower lobe with areas of bronchial wall thickening and mucous plugging. There is some right lower lobe bronchial wall thickening also present. No axillary or mediastinal adenopathy by CT criteria. Atherosclerotic plaque in the aortic arch and great vessels. Heart size is normal. No pericardial effusion. The upper abdomen shows fatty infiltration of the liver but no acute findings. Small gallstones. Multiple small low-attenuation renal lesions better evaluated on prior contrast-enhanced studies. Heavy atherosclerotic plaque in the proximal SMA causing moderate to severe stenosis. Moderate stenosis also in the proximal celiac axis. Mild left renal artery stenosis due to plaque. Bone windows show no lytic or blastic osseous lesions. Impression: Small area of consolidated or atelectatic medial left lower lobe. This could be due to mucous plugging, minor aspiration event or potentially endobronchial lesion. Bronchoscopy may be helpful for further evaluation. . Procedures Procedure Status Date Provider(s) CHEST X-RAY 2VW FRONTAL&LATL Completed 12/11/15 Encounters Encounter Location Arrival/Admit Date Discharge/Depart Date Attending Provider Discharged Inpatient [facility] 02/03/16 10:05am 02/06/16 3:20pm ROMI BURR DO Registered [facility] 12/11/15 8:24am JAMES FALL APRN
[2016-08-17 13:40] VITALS: Ht 165.1 cm; Wt 82.6 kg
--- NOTE | 2016-08-17 14:00 | ERPDOC ---
Departure Disposition Decision Date: Aug 17, 2016 Disposition Decision Time: 15:22 Disposition: 01 DISCHARGED HOME, SELF-CARE Impression Impression Impression: Primary Impression: COPD (chronic obstructive pulmonary disease) COPD type: chronic bronchitis Chronic bronchitis type: simple Qualified Codes: J41.0 - Simple chronic bronchitis Ruled Out: Suspected DVT (deep vein thrombosis) Severity: Moderate Condition: Improved Seen By: Physician only Referrals: ROMI BURR DO (Family) He has called in your prescriptions, you may pick those up SARA ABRAHAM MD Follow-up for future evaluation Patient Instructions: Electrocardiogram (GEN) Problems/Meds/Labs Reviewed?: Yes Medications reviewed and manag: Yes Follow up care ordered?: Yes Mental Status: Alert, Oriented HPI - Dyspnea General Chief Complaint: Cardiac Complaint Stated Complaint: ABNORMAL EKG Time Seen by Provider: 14:00 Source: patient, RN/MD Exam Limitations: no limitations HPI - Dyspnea Initial Comments Patient is a 75-year-old female presents emergency department for evaluation of abnormal EKG, shortness of air. Patient does have a history of COPD, normally receives oral steroids and a Z-Santosh. Patient having increasing respiratory difficulties for the last 4-5 days, went to primary medical physician's office for evaluation patient had an EKG done there which showed a left bundle branch block which is a change from prior EKGs. Patient was sent here for laboratories , however was intercepted by primary medical physician after laboratories were drawn and sent to the ER for acute evaluation. Patient having no chest pain at this time, is complaining of some mild shortness of air vital signs are within defined limits Allergies: Coded Allergies: salmeterol (Verified Allergy, Severe, RESPIRATORY DISTRESS, 08/17/16) amoxicillin trihydrate (Verified Allergy, Unknown, 08/17/16) hydrochlorothiazide (Verified Allergy, Unknown, 08/17/16) lisinopril (Verified Allergy, Unknown, 08/17/16) potassium clavulanate (Verified Allergy, Unknown, 08/17/16) Past History Patient Surgical History -Cataract -Tonsillectomy -Stape removal -Breast biopsy -lung collapse in 12/2014 Past Medical History Metabolic: hypercholesterolemia, hypertension Respiratory: COPD, pneumonia GI: GERD Female: UTI, pyelonephritis Musculoskeletal: osteoarthritis Surgical History General: colonoscopy, other, tonsils Reproductive/: other Family History Family PMH: FOUND: COPD, [place], diabetes, hypertension Vaccines Hx Influenza Vaccination: Yes (FALL 2014) Hx Pneumococcal Vaccination: Yes (UNKNOWN DATE) Social History Smoking Status: Never smoker # of Years: 35 Substance Use Type: does not use Alcohol Intake: occasionally Review of Systems Constitutional Constitutional: weakness, DENIES: appetite decrease, chills, dizziness, fever ENMT Sinuses: DENIES: congestion, rhinorrhea Mouth/Throat: DENIES: scratchy throat, sore throat Cardiovascular Cardiac: dyspnea on exertion, DENIES: chest pain Rhythm/Rate: tachycardia Pulmonary Respiratory: cough, dyspnea, sputum, tachypnea GI Upper Abdomen: DENIES: nausea, pain, vomiting Lower Abdomen: DENIES: constipation, diarrhea, pain General: DENIES: frequency, urgency Musculoskeletal General: DENIES: cramps, pain, weakness Integumentary Skin: DENIES: color change, itching, rash Endocrine Endocrine: DENIES: heat/cold intolerance Hematologic/Lymphatic Hematologic/Lymphatic: DENIES: anemia Physical Exam General General Nourishment: well nourished, well developed General Body Habitus: well groomed Vitals and Pain First Documented Vital Signs Date Time Temp Pulse Resp B/P Pulse Ox O2 Delivery O2 Flow Rate FiO2 08/17/16 13:40 98.0 91 20 191/86 95 Room Air Weight: Kilograms: Height (feet): 5 Height (inches): 6.00 Triage Pain Scale: RN VS reviewed by Provider: Yes Eyes (brief) Eyes Brief: found: EOMI ENMT (brief) ENMT Brief: FOUND: mucosa moist, normal dentition, NOT FOUND: nasal erythema, pharnyx erythema, tonsillar deviation Neck (brief) Neck: NOT FOUND: adenopathy, spasm, tenderness Respiratory (brief) Respiratory: FOUND: clear all munoz, equal bilaterally, wheezes (faint bibasilar), NOT FOUND: rales Cardiovascular (brief) Cardiac: FOUND: regular rate, regular rhythm Capillary Refill: <2 sec Abdomen (brief) Abdominal Brief: FOUND: bowel normo active x4, soft, NOT FOUND: distended, tender Lymphatic (brief) Lymphatic Brief: NOT FOUND: adenopathy Musculoskeletal (brief) Musculoskeletal Brief: NOT FOUND: spasm, tenderness Integumentary (brief) Integumentary Brief: FOUND: dry, pink, warm, NOT FOUND: rash Neurologic (brief) Neurological Brief: FOUND: CN w/o gross def to obs, motor-no gross deficits, sensory-no gross deficits Psychiatric (brief) Psychiatric Brief: FOUND: alert, oriented Differential Diagnoses Considering: Acute [place], Acute Respiratory Failure, CHF, COPD Exacerbation, Costochondritis, Hyperventilation, Pneumonia, Pulmonary Edema, Pulmonary Embolus , Viral Syndrome Progress Results/Orders Orders Procedure Category Date Status Time EKG EKG 08/17/16 Taken 13:25 Probnp LAB 08/17/16 Complete 14:08 D-Dimer LAB 08/17/16 Complete 14:08 Tsh - Thyroid Stim LAB 08/17/16 Complete Hormone 14:08 Magnesium LAB 08/17/16 Complete 14:08 Chest, Pa & Lateral RAD 08/17/16 Resulted 14:08 Iv Lock (Ed Only) EDM 08/17/16 Transmitted 14:08 Us Venous Duplex, US 08/17/16 Resulted Lower Ext Lt 14:08 Lab Results Laboratory Tests Test 08/17/16 13:17 08/17/16 14:22 Magnesium Level 1.5MG/DL XI-Rod-Y-Type Natriuretic Peptide 364PG/ML Thyroid Stimulating Hormone (TSH) 2.81MIU/L D-Dimer 170NG/ML Progress Progress Patient does show new left bundle-branch block on EKG, laboratories are otherwise noncontributory, at the request of Dr. Burr ultrasound of left lower extremity was done, no signs of DVT, d-dimer is noncontributory. Discuss case with Dr. Abraham who has come by and reviewed the EKG as well as spoken to the patient. Okay to discharge patient home, follow-up as needed. Dr. Burr is aware, Dr. Burr has already called in prescriptions for her. EKG EKG : Rate: 60-100 Rhythm: sinus [place]: normal QRS: LBBB Intervals: normal ST/T: non-specific changes Interpreted by: signing physician Xray Xray : Xray: CXR Portable Interpretation: Normal, Interpreted by Pa Ultrasound US : Ultrasound: Venous Doppler Interpretation: Normal, Faxed Report PACO FORBES MD Aug 17, 2016 14:00
--- OUTSIDE RECORDS SUMMARY | 2016-08-17 14:14 | XMS REPORT | Continuity of Care Document ---
Author Author [facility] Organization [facility] Address Unknown Phone Unavailable Allergies Medications Problems Date Dx Coded Attending Type Code Diagnosis Diagnosed By 12/29/2011 Isrrael Hobbs MD Final 496 CHRONIC AIRWAY OBSTR NEC Procedures Results Encounters ACCT No. Visit Date/Time Discharge Status Pt. Type Provider Facility Loc./Unit Complaint [id number] 12/29/2011 12:20:00 2011 23:59:59 CLS Outpatient Isrrael Hobbs MD [facility]
[2016-08-17] MEDS ORDERED: PRAV20TA4 PO (14:20)
[2016-08-17 14:25] LABS: MAGNESIUM 1.5 MG/DL (1.6-2.3)
--- NOTE | 2016-08-17 14:29 | NUR ---
XRAY TO XRAY [facility]IA [facility]
--- NOTE | 2016-08-17 14:39 | DI ---
EXAM: US VENOUS DUPLEX, LOWER EXT LT LOCATION OF DICTATION: [place] HISTORY: ITS.REASON: rule out venous thrombosis COMPARISON: No prior studies available for comparison. TECHNIQUE: Multiple real-time grayscale sonographic images were obtained of the left lower extremity with color flow and spectral analysis. FINDINGS: The left common femoral, femoral, deep femoral, popliteal, posterior tibial, and peroneal veins are widely patent without filling defects. These vessels demonstrate normal response to augmentation and compression. There are no abnormal fluid collections within the surrounding soft tissues. IMPRESSION: No evidence for left lower extremity deep venous thrombosis. .
--- NOTE | 2016-08-17 14:40 | NUR ---
XRAY RETURNS FROM XRAY VIA CART
[2016-08-17 14:56] LABS: THYROID STIM HORMONE-TSH 2.81 MIU/L (0.47-4.68)
--- NOTE | 2016-08-17 15:07 | DI ---
LOCATION OF DICTATION: [place] EXAM: CHEST, PA LATERAL HISTORY: ITS.REASON: shortness of air, left bundle COMPARISON: No prior studies available for comparison. FINDINGS: The heart size is normal. Mild calcific atherosclerotic disease of the thoracic aorta. The mediastinal configuration is unremarkable. There are no consolidating opacities or pleural effusions. There is no evidence for a pneumothorax. Mild stable elevation the right hemidiaphragm. Stable retrolisthesis of what appears to represent an upper lumbar vertebra. IMPRESSION: No acute cardiopulmonary abnormality is identified. .
--- NOTE | 2016-08-17 15:10 | NUR ---
PROVIDER IN ROOM TO SEE PATIENT.
[2016-08-17 15:37] VITALS: BP 179/83; PULSE 83; RESP 47; TEMP 98; O2SAT 96
== END 2016-08-17 15:37 | disposition home or self-care (01) ==
LOC: ED 13:22
DX: J44.9 Chronic obstructive pulmonary disease, unspecified (principal); I44.7 Left bundle-branch block, unspecified; I10 Essential (primary) hypertension; E78.00 Pure hypercholesterolemia, unspecified
CPT/HCPCS: 36415; 83735; 83880; 84443; 85379; 93005

== ENCOUNTER → 2016-08-17 | Outpatient (CLI) | payer MEDICARE ==
[~2016-08-17] MED LIST: ACET-2321 PO; ALBU18HF2 ORAL INH; ALLO300T2 PO; AMLO5TAB PO; ASPI-558 PO; BENZ-16 PO; BUDE0.5A AEROSOL; CARV6.252 PO; CHOL10003 PO; DOCU-168 PO; FLUO10CA21 PO; FLUT16SP EA NOSTRIL; FURO-35 PO; IPRA3AMP AEROSOL; LEVO750T20 PO; LORA0.5T86 PO; LORA10TA7 PO; POTA20TA10 PO; PRAV20TA4 PO; PRED10TA PO; ROFL500T PO
[2016-08-17 13:23] LABS: BASOPHILS % (AUTO) 0.4 % (0-2); EOSINOPHILS # (AUTO) 0.5 T/MM3 (0-0.5); EOSINOPHILS % (AUTO) 5.8 % (0-4); HGB - HEMOGLOBIN 13.9 GM/DL (12-16); IMMATURE GRANULOCYTE # (AUTO) 0.04 T/MM3 (0.00-0.03); IMMATURE GRANULOCYTE % (AUTO) 0.5 % (0.0-0.5); LYMPHOCYTES # (AUTO) 1.4 T/MM3 (1-4.8); LYMPHOCYTES % (AUTO) 16.7 % (23-45); MEAN CORPUSCULAR HGB 35.7 UUG (26-34); MEAN CORPUSCULAR HGB CONC(MCHC 33.9 GM/DL (31-37); MEAN CORPUSCULAR VOLUME 105.4 UM3 (80-100); MEAN PLATELET VOLUME 10.1 UM3 (9.4-12.4); MONOCYTES # (AUTO) 0.6 T/MM3 (0-0.8); MONOCYTES % (AUTO) 7.9 % (0-9.0); NEUTROPHILS #(AUTO)-ABSOLUTE 5.6 T/MM3 (1.8-7.7); NEUTROPHILS % (AUTO) 68.7 % (33-66); RED BLOOD COUNT 3.89 M/MM3 (4.00-5.20); WBC - WHITE BLOOD COUNT 8.1 T/MM3 (4.5-11.0)
[2016-08-17 13:32] LABS: LACTATE - LACTIC ACID 1.6 MMOL/L (0.6-2.2)
[2016-08-17 13:36] LABS: ALBUMIN 4.1 G/DL (3.5-5.0); ALBUMIN/GLOBULIN RATIO 1.6 RATIO (1.1-2.2); ALKALINE PHOSPHATASE 110 U/L (38-126); ALT (SGPT) 49 U/L (9-52); ANION GAP 13 MEQ/L (5-15); AST (SGOT) 51 U/L (14-36); BUN/CREATININE RATIO 14 RATIO (6-26); CALCIUM 9.7 MG/DL (8.4-10.2); CHLORIDE 96 MEQ/L (98-107); CO2 - CARBON DIOXIDE 30 MEQ/L (22-30); CREATININE 0.7 MG/DL (0.7-1.2); GLOMERULAR FILTRATION RATE 82; GLUCOSE 135 MG/DL (65-110); POTASSIUM 3.4 MEQ/L (3.6-5); SODIUM 139 MEQ/L (134-144); TOTAL PROTEIN 6.6 G/DL (6.3-8.2)
== END ==
LOC: IMA 12:59
PROVIDERS: ATTEND Internal Medicine
DX: J20.9 Acute bronchitis, unspecified (principal); J44.9 Chronic obstructive pulmonary disease, unspecified; R22.42 Localized swelling, mass and lump, left lower limb
CPT/HCPCS: 36415; 80053; 83605; 84145; 84484; 85025